=== PATIENT | female | born 1950 | race Caucasian/White ===

== ENCOUNTER 2021-08-20 07:33 | Outpatient (CLI) | payer MEDICARE, SELFPAY ==
--- NOTE | ~2021-08-20 | CT_ITS ---
EXAMINATION: CT abdomen pelvis wo/w con DATE: 08/20/2021 08:30 INDICATION: Right renal mass TECHNIQUE: Computed tomography (CT) of the abdomen and pelvis was performed without and subsequently with 100 cc Omnipaque 350 intravenous contrast. Automated exposure control and iterative reconstructi on technique were employed. Exam dose: 963.04 mGy-cm total exam DLP. COMPARISON: ultrasound of kidneys 12/09/2009 CT abdomen pelvis FINDINGS: The lung bases are clear. Normal heart size. Postoperative change of the stomach and small bowel. There is a suture line at the rectosigmoid area. 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 No hepatic, splenic, pancreatic or adrenal space-occupying mass lesion. The gallbladder is present . No bile duct or pancreatic duct dilatation. No renal mass lesion or urinary tract calculus or hydro ureteronephrosis. Normal caliber of the abdominal aorta. No intraperitoneal or retroperitoneal or pelvic mass lesion or adenopathy or ascites. The urinary bladder is unremarkable. Status post hysterectomy. There is a wide upper ventral abdominal wall hernia containing nonobstructed transverse colon. No evidence of appendicitis. There is a prominent amount fecal material within the colon. No bowel ob struction, bowel wall thickening, pneumatosis or intraperitoneal free air is detected. Degenerative changes of the thoracic and lumbar spine. No suspicious osteolytic or osteoblastic lesio ns are noted. IMPRESSION: Postoperative change of the stomach, small bowel and rectosigmoid area; no bowel obstruc tion or free air Status post hysterectomy No suspicious renal mass lesion is detected Reviewed, dictated and finalized at [facility]. Reviewed, dictated and finalized at [facility]. R ACID DRUM IMPRESSION: Postoperative change of the stomach, small bowel and rectosigmoid area; no bowel obstruction or free air Status post hysterectomy No suspicious renal mass lesion is detected
[2021-08-20 08:19] LABS: Estimated Glomerular Filt Rate > 60
== END 2021-08-20 07:34 | disposition home or self-care (01) ==
PROVIDERS: Visit Provider Nurse Practitioner Adult Health
DX: N28.89 Other specified disorders of kidney and ureter (principal)
CPT/HCPCS: 74178; Q9967